=== PATIENT | male | born 1975 | race Caucasian/White ===

== ENCOUNTER → 2017-01-23 | Outpatient (CLI) | payer BC ==
[2017-01-23 11:17] LABS: ANION GAP 6 MEQ/L (8-16); BLOOD UREA NITROGEN 18 MG/DL (7-18); CALCIUM LEVEL 9.1 MG/DL (8.5-10.1); CARBON DIOXIDE LEVEL 29 MEQ/L (21-32); CHLORIDE LEVEL 103 MEQ/L (98-107); CHOLESTEROL LEVEL 233 MG/DL (<200); CREATININE FOR GFR 0.87 MG/DL (0.70-1.30); GLOMERULAR FILTRATION RATE > 60.0 (>60); GLUCOSE, FASTING 87 MG/DL (70-105); POTASSIUM SERUM 4.3 MEQ/L (3.5-5.1); SODIUM LEVEL 138 MEQ/L (136-145); TRIGLYCERIDES LEVEL 320 MG/DL (<150)
== END ==
LOC: M LAB 09:46
PROVIDERS: ATTEND Family Medicine
DX: G47.33 Obstructive sleep apnea (adult) (pediatric) (principal); I10 Essential (primary) hypertension

== ENCOUNTER 2017-10-22 09:53 | Emergency (ER) | payer BC ==
[2017-10-22 11:41] LABS: KETONE, URINE AUTO RFX NEGATIVE (NEGATIVE); LEUKOCYTE ESTERASE UR AUTO RFX NEGATIVE (NEGATIVE); MUCUS, URINE RFX SMALL (NEGATIVE); NITRITE, URINE AUTO RFX NEGATIVE (NEGATIVE); RBC, URINE AUTO RFX 0 /HPF (0-3); SPECIFIC GRAVITY UR AUTO RFX 1.025 (1.002-1.035); SQUAM EPITHELIAL CELL UR AURFX 0 /HPF (0-6); WBC, URINE AUTO RFX 0 /HPF (0-3)
== END 2017-10-22 13:04 | disposition home or self-care (01) ==
LOC: M ED 09:53
DX: N50.82 Scrotal pain (principal); I10 Essential (primary) hypertension; E78.5 Hyperlipidemia, unspecified; J45.909 Unspecified asthma, uncomplicated; Z79.899 Other long term (current) drug therapy
CPT/HCPCS: 76870

== ENCOUNTER → 2020-03-24 | Outpatient (CLI) | payer BC ==
[~2020-03-24] MED LIST: LISI-538; SERT-138; TRAZ-252
--- NOTE | 2020-03-27 08:53 | ECHO ---
DATE OF PROCEDURE: 03/24/2020 Age: 44 Gender: Male Height: 76 inches Weight: 300 pounds REFERRING PHYSICIAN: Consatntine June PA-C INDICATION: Systemic hypertension. MEASUREMENTS: 2D Measurements: Left atrium 4.4 cm Aortic root 3.6 cm Intraventricular septum 1.54 cm Posterior wall 1.55 cm Left ventricle diastole 5.2 cm Inferior vena cava 2.4 cm Doppler Measurements: No aortic stenosis No aortic regurgitation Aortic valve velocity 125 cm/s LVOT velocity 94.0 cm/s LVOT VTI 20.2 cm No mitral regurgitation No mitral stenosis Mitral E velocity 76.5 cm/s Mitral A velocity 69.1 cm/s Mitral deceleration time 183 msec No tricuspid regurgitation No pulmonic regurgitation Pulmonary artery acceleration time 165 msec MITRAL ANNULAR TISSUE DOPPLER E prime septal 7.3 cm/s DESCRIPTION: Rhythm was sinus. No pericardial effusion. This was a moderately technically difficult echocardiogram. This was a 2D, M-mode, color flow Doppler, and pulsed wave Doppler examination including mitral annular tissue Doppler. CONCLUSIONS: 1. Moderate concentric left ventricular hypertrophy. Normal regional left ventricular (LV) wall motion and wall thickening. Normal left ventricular (LV) systolic function. Left ventricular ejection fraction (LVEF) 65%-70% by visual estimate. Normal left ventricular (LV) diastolic function for age. 2. Normal right ventricle size and systolic function. Pulmonary artery systolic pressure not elevated. 3. No coarctation of the aorta. 4. Otherwise normal appearing echocardiogram Doppler findings. 5. Moderately technically difficult echocardiogram. MTDD
== END ==
LOC: M CARPUL 09:39
PROVIDERS: ATTEND Physician Assistant
DX: I10 Essential (primary) hypertension (principal)

== ENCOUNTER → 2020-07-10 | Outpatient (CLI) | payer BC ==
[~2020-07-10] MED LIST changes: -LISI-538; +LISI20TA33
[2020-07-10 07:32] LABS: BASO # 0.1 10^3/uL (0.0-0.2); BASO % 0.6 % (0.0-1.0); EOS # 0.3 10^3/uL (0.0-0.5); EOS % 4.4 % (0.0-3.0); HEMATOCRIT 42.4 % (42.0-52.0); HEMOGLOBIN 14.6 g/dl (13.5-17.5); LYMPH # 1.8 10^3/uL (1.5-5.0); LYMPH % 23.3 % (24.0-44.0); MEAN CORPUSCULAR HEMOGLOBIN 31.7 pg (27.0-33.0); MEAN CORPUSCULAR HGB CONC 34.4 g/dl (32.0-36.5); MEAN CORPUSCULAR VOLUME 92.2 fl (80.0-96.0); MONO # 0.8 10^3/uL (0.0-0.8); MONO % 9.8 % (2.0-8.0); NEUTROPHILS # 4.7 10^3/uL (1.5-8.5); NEUTROPHILS % 60.9 % (36.0-66.0); PLATELET COUNT, AUTOMATED 232 10^3/uL (150-450); WHITE BLOOD COUNT 7.7 10^3/uL (4.0-10.0)
[2020-07-10 08:03] LABS: HEMOGLOBIN A1c 5.3 %
[2020-07-10 08:07] LABS: ALBUMIN 4.1 GM/DL (3.2-5.2); ALT/SGPT 43 U/L (12-78); BILIRUBIN,TOTAL 0.5 MG/DL (0.2-1.0); BLOOD UREA NITROGEN 23 MG/DL (7-18); CALCIUM LEVEL 9.1 MG/DL (8.5-10.1); CARBON DIOXIDE LEVEL 28 MEQ/L (21-32); CHLORIDE LEVEL 106 MEQ/L (98-107); CHOLESTEROL LEVEL 212 MG/DL (<200); CHOLESTEROL RISK RATIO 6.057 (<5); CREATININE FOR GFR 0.99 MG/DL (0.70-1.30); FREE T4 0.91 NG/DL (0.76-1.46); GLOMERULAR FILTRATION RATE > 60.0 (>60); GLUCOSE, FASTING 110 MG/DL (70-100); HDL CHOLESTEROL 35 MG/DL (>40); LDL CHOLESTEROL 129 MG/DL (<100); NON-HDL-C 177 MG/DL; POTASSIUM SERUM 4.4 MEQ/L (3.5-5.1); SODIUM LEVEL 138 MEQ/L (136-145); TOTAL PROTEIN 7.4 GM/DL (6.4-8.2); TRIGLYCERIDES LEVEL 241 MG/DL (<150)
[2020-07-10 12:03] LABS: TOTAL 25(OH) VITAMIN D 24.6 NG/ML (30.0-100.0)
== END ==
LOC: M LAB 06:55
PROVIDERS: ATTEND Physician Assistant
DX: Z13.29 Encounter for screening for other suspected endocrine disorder (principal); Z12.5 Encounter for screening for malignant neoplasm of prostate; E78.2 Mixed hyperlipidemia
CPT/HCPCS: 36415; 80053; 80061; 82306; 83036; 84439; 84443; 85025; G0103

== ENCOUNTER 2020-07-15 19:06 | Emergency (ER) | payer BC ==
[~2020-07-15] VITALS: Ht 193 cm; Wt 146.1 kg
[2020-07-15] MEDS ORDERED: KETOROLAC TROMETHAMINE 10 MG TAB PO ONE (19:40)
[2020-07-15] MEDS ORDERED: methocarbamoL 750 MG TAB PO ONE (19:40)
--- NOTE | 2020-07-15 20:34 | REPVR ---
PROCEDURE INFORMATION: Exam: XR Left Knee Exam date and time: 07/15/2020 8:17 PM Age: 44 years old Clinical indication: Other: Unable to weight bear/felt pop; Additional info: Unable to weight bear/felt "pop" TECHNIQUE: Imaging protocol: XR Left knee. Views: 4 or more views. COMPARISON: No relevant prior studies available. FINDINGS: Bones/joints: Periosteal and cortical thickening demonstrated in the proximal tibia and fibular likely related to prior fractures and/or infection. Small focus of cortical discontinuity demonstrated along the medial margin of the proximal fibular consistent with fracture. Soft tissues: Normal. IMPRESSION: Small focus of cortical discontinuity demonstrated along the medial margin of the proximal fibular consistent with fracture. Electronically signed by: Fortino Bass On 07/15/2020 20:34:55 PM
[2020-07-15] MEDS ORDERED: PERCOCET 5MG/325MG TAB PO ONE (21:05)
--- NOTE | 2020-07-15 22:42 | REPVR ---
PROCEDURE INFORMATION: Exam: MR Left Lower Extremity Joint Without Contrast, Knee Exam date and time: 07/15/2020 10:02 PM Age: 44 years old Clinical indication: Left; Patient HX: Lt knee pain, PT states he was walking and felt a "pop" and has been unable to bear weight since nki; Additional info: Unable to bear weight/? Patellar tendon tear TECHNIQUE: Imaging protocol: MR of the Left lower extremity joint without contrast. Exam focused on the knee. COMPARISON: CR Knee, complete LEFT 07/15/2020 8:06 PM FINDINGS: Bones and cartilage: No fracture. There is fissuring of the articular cartilage of the lateral aspect of the distal femur medial condyle (coronal fat-suppressed images 20 and 21). There is mild surface irregularity of the articular cartilage of the medial patellar facet. Joint spaces: There is a small volume of synovial fluid within the tibiofemoral and patellofemoral joints. Periarticular cysts: There is a ganglion versus synovial cyst adjacent to the posterior aspect of the proximal tibiofibular joint. Medial meniscus: There is a radial tear of the medial meniscus posterior horn at its central attachment site (posterior horn root tear). The medial meniscus midportion is mildly peripherally displaced. Lateral meniscus: Unremarkable. No tear. Anterior cruciate ligament: Low signal thickening of the proximal aspect of the anterior cruciate ligament is consistent with mild chronic sprain. Posterior cruciate ligament: There is mild increased signal within the substance of the posterior cruciate ligament consistent with mild sprain and/or mucoid degeneration. Medial capsule and supporting structures: Unremarkable. No tear. Lateral capsule and supporting structures: Unremarkable. No tear. Extensor mechanism of knee: There is thinning of the proximal aspect of the patella tendon and adjacent mild increased T2 signal consistent with mild sprain (of uncertain age). The quadriceps tendon is intact. The patellar retinacula are unremarkable. Muscles: Unremarkable. Soft tissues: Unremarkable. IMPRESSION: 1. Radial tear of the medial meniscus posterior horn at its central attachment site (posterior horn root tear). 2. Mild sprain and/or mucoid degeneration of the posterior cruciate ligament. 3. Mild chronic sprain of the anterior cruciate ligament. 4. Mild sprain of the proximal aspect of the patella tendon, of uncertain age. 5. Mild chondromalacia of the distal femur medial condyle and medial patellar facet. Electronically signed by: Grant Holliday On 07/15/2020 22:42:57 PM
[2020-07-15] MEDS ORDERED: HYDR-3713 PO (23:08)
[2020-07-15] MEDS ORDERED: NORCO 5/325MG TABLET (BULK FOR ED) PO ONE (23:10)
[2020-07-15 23:33] VITALS: BP 144/86
== END 2020-07-15 23:39 | disposition home or self-care (01) ==
LOC: M ED 19:06
DX: S83.242A Other tear of medial meniscus, current injury, left knee, initial encounter (principal); X58.XXXA Exposure to other specified factors, initial encounter; Y92.9 Unspecified place or not applicable; Y93.9 Activity, unspecified; Y99.9 Unspecified external cause status; I10 Essential (primary) hypertension; E78.5 Hyperlipidemia, unspecified; F41.9 Anxiety disorder, unspecified; Z79.899 Other long term (current) drug therapy

== ENCOUNTER → 2020-08-17 | Outpatient (CLI) | payer BC ==
[~2020-08-17] MED LIST changes: +HYDR-3713 PO
--- NOTE | 2020-08-17 17:02 | ECGEPIP ---
[facility] Test Date: 2020-08-17 Pat Name: FRANK DAMON Department: Room: - Gender: Male Event Marketing Assistant: RABIA : 1975 Requested By: Vitor Crockett Order Number: [id number] Reading MD: Ramon Cerda Measurements Intervals [place] Rate: 81 P: 59 [place]: 164 QRS: -24 QRSD: 108 T: 62 QT: 362 QTc: 420 Interpretive Statements somatic artifact. Normal sinus rhythm left axis deviation (measured action that is incorrect) somewhat low voltages with incomplete RBBB; body habitus versus pulmonary disease. Nonspecific T wave abnormality Electronically Signed on 08-17-2020 17:01:50 EDT by Ramon Cerda
== END ==
LOC: M EKG 12:57
PROVIDERS: ATTEND Orthopaedic Surgery
DX: Z01.810 Encounter for preprocedural cardiovascular examination (principal)

== ENCOUNTER 2020-12-29 21:10 | Emergency (ER) | payer BC ==
[~2020-12-29] VITALS: Ht 190.5 cm; Wt 145.4 kg
--- NOTE | 2020-12-30 07:55 | REP ---
INDICATION: trauma COMPARISON: None TECHNIQUE: Five views FINDINGS: A very subtle lucency and cortical irregularity is seen involving the lateral tip of the lateral tibial plateau articular surface. There is subtle tricompartmental marginal osteophytosis. The compartments are symmetric and well maintained. IMPRESSION: Possible tiny lateral tibial plateau fracture as described above. <Electronically signed by Shon Appiah > 12/30/20 [id number]
--- NOTE | 2020-12-30 08:44 | REP ---
INDICATION: tibial pleateu fx?. COMPARISON: None. TECHNIQUE: 3 x 3 mm helical scanning reconstructed in both sagittal and coronal planes. Prior plain film examination obtained earlier today also reviewed. FINDINGS: There is slight tricompartmental marginal osteophytosis. There is no evidence of an acute fracture, dislocation, or subluxation. There is a slight joint effusion. There are calcifications seen in the distal quadriceps tendon consistent with chronic change likely from an enthesopathy. IMPRESSION: There is no acute fracture. The plain film finding represented osteophytosis. There is a slight joint effusion. <Electronically signed by Shon Appiah > 12/30/20 [id number]
[2020-12-30 08:55] VITALS: BP 125/80
== END 2020-12-30 08:55 | disposition home or self-care (01) ==
LOC: M ED 21:10
DX: S83.91XA Sprain of unspecified site of right knee, initial encounter (principal); X58.XXXA Exposure to other specified factors, initial encounter; Y92.89 Other specified places as the place of occurrence of the external cause; Y93.89 Activity, other specified; Y99.8 Other external cause status; I10 Essential (primary) hypertension; J45.909 Unspecified asthma, uncomplicated; E78.5 Hyperlipidemia, unspecified; Z79.899 Other long term (current) drug therapy

== ENCOUNTER 2023-09-03 11:02 | Day surgery (SDC) | payer OTHER ==
[~2023-09-03] VITALS: Ht 190.5 cm; Wt 131.3 kg
[~2023-09-03 11:02] MED LIST changes: +BUPR-597 PO; +CLONI1TA PO; +GABA-282 PO; +MELO15TA28 PO; +VALS320T2 PO; +ZOLO100T PO; +ZOLP10TA2 PO
[2023-09-03] MEDS: NS 1,000 ML IV ONE (11:38)
[2023-09-03] MEDS ORDERED: propofoL 200 MG/20 ML VIAL As Ordered ONE (12:33)
[2023-09-03 13:20] VITALS: BP 110/61; TEMP 97; O2SAT 97
== END 2023-09-03 13:22 | disposition home or self-care (01) ==
LOC: M OPP 11:02
PROVIDERS: ATTEND Surgery
DX: Z12.11 Encounter for screening for malignant neoplasm of colon (principal); K63.5 Polyp of colon; K64.1 Second degree hemorrhoids; G47.30 Sleep apnea, unspecified; Z99.89 Dependence on other enabling machines and devices; Z79.1 Long term (current) use of non-steroidal anti-inflammatories (NSAID); Z79.891 Long term (current) use of opiate analgesic; Z79.899 Other long term (current) drug therapy

== ENCOUNTER → 2023-11-10 | Outpatient (CLI) | payer OTHER | LOC: M SLEEP HO 11:03 | PROVIDERS: ATTEND Physician Assistant | DX: G47.33 Obstructive sleep apnea (adult) (pediatric) (principal) ==